=== PATIENT | male | born 1985 | race Caucasian/White ===

== ENCOUNTER 2017-02-04 18:10 | Emergency (ER) | payer BC | END 2017-02-04 20:28 | disposition left against medical advice (07) | LOC: D.ER 18:10 | DX: T14.8 Other injury of unspecified body region (principal) ==

== ENCOUNTER 2017-02-05 06:53 | Emergency (ER) | payer BC | END 2017-02-05 08:28 | disposition home or self-care (01) | LOC: D.ER 06:53 | DX: L03.012 Cellulitis of left finger (principal) ==